=== PATIENT | female | born 1965 | race African-American/Black ===

== ENCOUNTER 2023-07-29 19:20 | Inpatient (IN) | payer MEDICAID, OTHER ==
[~2023-07-29] VITALS: Ht 157.5 cm; Wt 36.3 kg
[~2023-07-29 19:20] MED LIST: AMLO10TA59 PO; PANT40TA2 PO
[2023-07-29] MEDS: IV NORMAL SALINE 1000 ML BAG IV ONE (20:30)
[2023-07-29] MEDS: ONDANSETRON 4 MG/2 ML VIAL IV ONE ×2 (20:30→20:45)
[2023-07-29 20:38] LABS: BASOPHILS % (AUTO) 0.5 % (0.0-2.0); EOSINOPHILS % (AUTO) 0.6 % (0.0-7.0); HEMATOCRIT 36.8 % (31.2-41.9); HEMOGLOBIN 11.5 g/dL (10.9-14.3); LYMPHOCYTES # (AUTO) 0.9 K/uL (0.8-4.8); LYMPHOCYTES % (AUTO) 11.4 % (20.5-51.5); MEAN CORPUSCULAR HGB CONC 31 g/dL (32.3-35.6); MEAN CORPUSCULAR VOLUME 92.5 fL (75.5-95.3); MONOCYTES # (AUTO) 0.9 K/uL (0.1-1.30); NEUTROPHILS # (AUTO) 6.2 K/uL (1.8-8.9); NEUTROPHILS % (AUTO) 76.5 % (38.5-71.5); PLATELET COUNT (AUTO) 330 K/uL (179-408); RED BLOOD CELL COUNT(AUTO) 3.98 MIL/uL (3.63-4.92); RED CELL DISTRIBUTION WIDTH 14.4 % (12.3-17.7); WHITE BLOOD COUNT (AUTO) 8.1 K/uL (3.8-11.8)
[2023-07-29 20:39] LABS: DIFFERENTIAL COMMENT 1
[2023-07-29 20:47] LABS: CALCIUM 8.3 mg/dL (8.5-10.1); CREATININE 0.9 mg/dL (0.6-1.3); POTASSIUM 3.3 mmol/L (3.5-5.1)
[2023-07-29 20:57] LABS: ALBUMIN 3.2 g/dL (3.4-5.0); BILIRUBIN,DIRECT 0.5 mg/dL (0.0-0.2); BILIRUBIN,TOTAL 0.9 mg/dL (0.2-1.0); TOTAL PROTEIN, SERUM 6.6 g/dL (6.4-8.2)
[2023-07-29] MEDS ORDERED: ONDANSETRON 4 MG/2 ML VIAL ONE (21:01)
[2023-07-29] MEDS ORDERED: HYDROMORPHONE 1 MG/1 ML DISP.SYRIN ONE (22:04)
[2023-07-29] MEDS: HYDROMORPHONE 1 MG/1 ML DISP.SYRIN IV ONE (22:08)
[2023-07-29] MEDS ORDERED: SWABABLE VALVE TRANSFER SET EA MC ONE (22:33)
[2023-07-29] MEDS ORDERED: IOHEXOL 300MG/ML 100 ML INFUS..BTL ONE (22:33)
[2023-07-29] MEDS ORDERED: IV NORMAL SALINE 250 ML IV ONE (22:33)
[2023-07-30 00:32] LABS: *BILIRUBIN,URIN NEGATIVE (NEGATIVE); *CLARITY,URINE CLEAR (CLEAR); *COLOR,URINE YELLOW (YELLOW); *KETONES,URINE NEGATIVE (NEGATIVE); *PROTEIN,URINE NEGATIVE (NEGATIVE); *UROBILINOGEN,URINE 0.2 E.U./dl (NORMAL); LEUKOCYTE ESTERASE ,URINE NEGATIVE (NEGATIVE); NITRITE, URINE NEGATIVE (NEGATIVE); PH,URINE 5.5 (5.0-8.0); UGLUCOSE NEGATIVE (NEGATIVE)
[2023-07-30 00:34] LABS: *BLOOD, URINE NEGATIVE (NEGATIVE)
[2023-07-30] MEDS ORDERED: levoFLOXacin 500 MG/D5W 100 ML ONE (00:34)
[2023-07-30] MEDS ORDERED: METRONIDAZOLE 500 MG/NS 100ML 100 ML IV ONE (00:35)
[2023-07-30] MEDS ORDERED: ONDANSETRON 4 MG/2 ML VIAL ONE ×2 (00:36→05:24)
[2023-07-30] MEDS: METRONIDAZOLE 500 MG/NS 100 ML PIGGYBACK IV ONE (00:52)
[2023-07-30] MEDS: MAGNESIUM SULFATE/D5W 100 ML IV SCH (01:00)
[2023-07-30] MEDS: levoFLOXacin 500 MG/D5W 100ML PIGGYBACK IV ONE (01:30)
[2023-07-30] MEDS ORDERED: MAGNESIUM SULFATE/D5W 100 ML ONE ×2 (01:55→03:05)
[2023-07-30] MEDS ORDERED: HYDROMORPHONE 1 MG/1 ML DISP.SYRIN ONE ×2 (01:55→05:25)
[2023-07-30] MEDS: ONDANSETRON 4 MG/2 ML VIAL IV ONE ×2 (02:01→05:33)
[2023-07-30] MEDS: HYDROMORPHONE 1 MG/1 ML DISP.SYRIN IV ONE ×2 (02:01→05:33)
[2023-07-30] MEDS ORDERED: MAGNESIUM SULFATE/D5W 200 ML ONE (04:02)
[2023-07-30] MEDS ORDERED: POTASSIUM CHLORIDE 20 MEQ TAB.PRT.SR ONE (05:26)
[2023-07-30] MEDS: POTASSIUM CHLORIDE 20 MEQ TAB.PRT.SR PO ONE (05:30)
[2023-07-30] MEDS ORDERED: MAGNESIUM HYDROXIDE 30 ML LIQUID UDC PO PRN (05:45)
[2023-07-30 06:25] VITALS: BP 122/87; TEMP 97.7; O2SAT 99
[2023-07-30 08:13] LABS: MONOCYTES % (AUTO) 3.7 % (0.0-11.0); NEUTROPHILS # (AUTO) 2.5 K/uL (1.8-8.9)
[2023-07-30 08:22] LABS: BASOPHILS % (AUTO) 0.9 % (0.0-2.0); EOSINOPHILS % (AUTO) 0.1 % (0.0-7.0); HEMATOCRIT 36.5 % (31.2-41.9); LYMPHOCYTES # (AUTO) 1.4 K/uL (0.8-4.8); LYMPHOCYTES % (AUTO) 34.2 % (20.5-51.5); MEAN CORPUSCULAR HEMOGLOBIN 29.8 uug (24.7-32.8); MEAN CORPUSCULAR HGB CONC 33 g/dL (32.3-35.6); MEAN CORPUSCULAR VOLUME 90.9 fL (75.5-95.3); MONOCYTES # (AUTO) 0.2 K/uL (0.1-1.30); NEUTROPHILS % (AUTO) 61.1 % (38.5-71.5); PLATELET COUNT (AUTO) 328 K/uL (179-408); RED BLOOD CELL COUNT(AUTO) 4.02 MIL/uL (3.63-4.92); WHITE BLOOD COUNT (AUTO) 4.1 K/uL (3.8-11.8)
[2023-07-30 08:42] LABS: CALCIUM 8.1 mg/dL (8.5-10.1); CREATININE 0.6 mg/dL (0.6-1.3); MAGNESIUM 2.4 mg/dL (1.8-2.4); PHOSPHOROUS 3.2 mg/dL (2.5-4.9)
[2023-07-30 08:45] LABS: DIFFERENTIAL COMMENT 1
[2023-07-30 08:49] LABS: POTASSIUM 2.7 mmol/L (3.5-5.1)
[2023-07-30] MEDS: PANTOPRAZOLE SODIUM 40 MG VIAL IV SCH (08:50)
[2023-07-30] MEDS: ONDANSETRON 4 MG/2 ML VIAL IV PRN (08:51)
[2023-07-30] MEDS: ENOXAPARIN SODIUM 40 MG/0.4 ML DISP.SYRIN SQ SCH (08:53)
[2023-07-30] MEDS: IV NS 1000 ML 1,000 ML IV PRN (08:53)
[2023-07-30] MEDS: MIRALAX 17 GM POWD.PACK PO SCH (10:00)
[2023-07-30] MEDS: POTASSIUM CHLORIDE 20 MEQ POWDER PACKET PO ONE ×3 (10:11→16:19)
[2023-07-30] MEDS: HYDROMORPHONE 1 MG/1 ML DISP.SYRIN IV PRN ×2 (10:12→21:30)
[2023-07-30] MEDS: METRONIDAZOLE 500 MG/NS 100ML 500 MG in PREMIXED 1 EACH IV SCH (10:15)
[2023-07-30] MEDS: CIPROFLOXACIN IV 200 MG in PREMIXED 1 EACH IV SCH (10:15)
[2023-07-30 11:07] VITALS: BP 136/91; TEMP 98.4; O2SAT 100
[2023-07-30 14:02] LABS: BAND % (MANUAL) 1 % (0-10); LYMPHOCYTES % (MANUAL) 16 % (20-40); MONOCYTES % (MANUAL) 2 % (2-10); NEUTROPHILS % (MANUAL) 81 % (42-75); PLATELET ESTIMATE ADEQUATE
[2023-07-30 14:03] LABS: ANISOCYTOSIS 1+; HYPOCHROMASIA 1+
[2023-07-30 15:10] VITALS: BP 136/94; TEMP 98.2; O2SAT 96
[2023-07-30] MEDS: SENNOSIDES 1 TABLET PO SCH (21:29)
[2023-07-30 23:05] VITALS: BP 134/103; TEMP 98.4; O2SAT 98
[2023-07-31] VITALS (7 sets, daily range): BP systolic 132–143; BP diastolic 72–99; TEMP 92.2–98.6; O2SAT 95–99
[2023-07-31 07:42] LABS: ALBUMIN 2.8 g/dL (3.4-5.0); BILIRUBIN,DIRECT 0.1 mg/dL (0.0-0.2); BILIRUBIN,TOTAL 0.5 mg/dL (0.2-1.0); TOTAL PROTEIN, SERUM 5.8 g/dL (6.4-8.2)
[2023-07-31] MEDS: ACIDOPHILUS/BULGARICUS CHEW TAB PO SCH (11:11)
[2023-07-31] MEDS: GLUCERNA SHAKE 237 ML CAN PO SCH (12:16)
[2023-07-31] MEDS: CIPROFLOXACIN IV 200 MG in PREMIXED 1 EACH IV SCH (12:16)
[2023-07-31] MEDS ORDERED: METH-806 PO (14:17)
[2023-07-31] MEDS ORDERED: LOSA25TA27 PO (14:17)
[2023-07-31] MEDS ORDERED: ONDA4TAB11 PO (14:17)
[2023-07-31] MEDS ORDERED: MECL-159 PO (14:17)
[2023-07-31] MEDS ORDERED: ACET1TAB25 PO (14:18)
[2023-07-31] MEDS: PROTEIN SUPPLEMENT (PROSTAT) 30 ML LIQUID PO SCH (17:04)
[2023-07-31] MEDS ORDERED: METHOCARBAMOL 500 MG TABLET PO PRN (20:00)
[2023-07-31] MEDS ORDERED: MECLIZINE HCL 25 MG TABLET PO PRN (20:00)
[2023-07-31] MEDS: AMLODIPINE 10 MG TABLET PO SCH (22:11)
[2023-08-01 04:54] VITALS: BP 159/74; TEMP 98.5; O2SAT 92
[2023-08-01 07:32] LABS: CALCIUM 7.9 mg/dL (8.5-10.1); CREATININE 0.6 mg/dL (0.6-1.3); POTASSIUM 3.2 mmol/L (3.5-5.1)
[2023-08-01 08:10] VITALS: BP 147/62; TEMP 97.7; O2SAT 98
[2023-08-01] MEDS: LOSARTAN POTASSIUM 25 MG TABLET PO SCH (11:09)
[2023-08-01 11:38] VITALS: BP 123/93; TEMP 98.7; O2SAT 100
[2023-08-01] MEDS: POTASSIUM CHLORIDE 20 MEQ POWDER PACKET PO ONE ×2 (11:55→13:30)
[2023-08-01 15:42] VITALS: BP 122/89; TEMP 98.2; O2SAT 99
[2023-08-01 22:04] VITALS: BP 121/83; TEMP 98.2
[2023-08-02 06:47] LABS: BASOPHILS % (AUTO) 0.4 % (0.0-2.0); EOSINOPHILS # (AUTO) 0.2 K/uL (0.0-0.7); HEMATOCRIT 35.5 % (31.2-41.9); HEMOGLOBIN 11.5 g/dL (10.9-14.3); LYMPHOCYTES # (AUTO) 1.5 K/uL (0.8-4.8); LYMPHOCYTES % (AUTO) 28.5 % (20.5-51.5); MEAN CORPUSCULAR HGB CONC 32 g/dL (32.3-35.6); MEAN CORPUSCULAR VOLUME 92.6 fL (75.5-95.3); MONOCYTES # (AUTO) 0.6 K/uL (0.1-1.30); MONOCYTES % (AUTO) 10.8 % (0.0-11.0); NEUTROPHILS # (AUTO) 3.1 K/uL (1.8-8.9); NEUTROPHILS % (AUTO) 57.3 % (38.5-71.5); RED BLOOD CELL COUNT(AUTO) 3.84 MIL/uL (3.63-4.92); RED CELL DISTRIBUTION WIDTH 14.4 % (12.3-17.7); WHITE BLOOD COUNT (AUTO) 5.3 K/uL (3.8-11.8)
[2023-08-02 06:52] LABS: DIFFERENTIAL COMMENT 1
[2023-08-02 06:54] LABS: ALBUMIN 2.8 g/dL (3.4-5.0); BILIRUBIN,TOTAL 0.3 mg/dL (0.2-1.0); CALCIUM 8.4 mg/dL (8.5-10.1); CREATININE 0.6 mg/dL (0.6-1.3); POTASSIUM 3.7 mmol/L (3.5-5.1); TOTAL PROTEIN, SERUM 5.9 g/dL (6.4-8.2)
[2023-08-02] MEDS: PANTOPRAZOLE SODIUM 40 MG TABLET.DR PO SCH (06:57)
[2023-08-02 07:54] VITALS: BP 122/86; TEMP 97.8
[2023-08-02 08:42] VITALS: BP 122/86
[2023-08-02] MEDS ORDERED: ACID1TAB4 PO (08:44)
[2023-08-02] MEDS ORDERED: CIPR500T5 PO (08:44)
[2023-08-02] MEDS ORDERED: ACET1TAB25 PO (08:44)
[2023-08-02] MEDS ORDERED: METR500T PO (08:44)
[2023-08-02 11:17] LABS: PLATELET COUNT (AUTO) 293 K/uL (179-408)
[2023-08-02] MEDS ORDERED: METRONIDAZOLE 500 MG TABLET PO SCH (14:00)
== END 2023-08-02 10:25 | disposition home or self-care (01) | DRG 248 ==
LOC: ER 19:25 → MEDSURG3 07-30 01:44
PROVIDERS: ADMIT Nurse Practitioner Acute Care; ATTEND Nurse Practitioner Acute Care
DX: A04.9 Bacterial intestinal infection, unspecified (principal); R64 Cachexia; E43 Unspecified severe protein-calorie malnutrition; K83.8 Other specified diseases of biliary tract; E86.0 Dehydration; E83.42 Hypomagnesemia; Z68.1 Body mass index [BMI] 19.9 or less, adult; E87.6 Hypokalemia; G89.29 Other chronic pain; K59.00 Constipation, unspecified; Z90.49 Acquired absence of other specified parts of digestive tract; K21.9 Gastro-esophageal reflux disease without esophagitis; I10 Essential (primary) hypertension; Z90.710 Acquired absence of both cervix and uterus; Z90.81 Acquired absence of spleen; Z98.84 Bariatric surgery status; Z88.1 Allergy status to other antibiotic agents; Z88.0 Allergy status to penicillin
CPT/HCPCS: 36415; 70030-TC; 71045; 76705; 83690; 83735; 84100; 85025; 85730; A4606; A4663; C9113; G0378; J1170; J1650; J1956; J2405; J3475; J3490; J7040; Q9967

== ENCOUNTER 2023-09-13 11:38 | Emergency (ER) | payer MEDICAID ==
[~2023-09-13] VITALS: Ht 157.5 cm; Wt 36.3 kg
[~2023-09-13 11:38] MED LIST changes: +ACET1TAB25 PO; +ACID1TAB4 PO; +CIPR500T5 PO; +LOSA25TA27 PO; +MECL-159 PO; +METH-806 PO; +METR500T PO; +ONDA4TAB11 PO
[2023-09-13 12:13] LABS: BASOPHILS # (AUTO) 0.1 K/UL (0.0-0.2); BASOPHILS % (AUTO) 1.6 % (0.0-2.0); EOSINOPHILS # (AUTO) 0.2 K/uL (0.0-0.7); HEMATOCRIT 41.2 % (31.2-41.9); HEMOGLOBIN 12.9 g/dL (10.9-14.3); LYMPHOCYTES # (AUTO) 1.5 K/uL (0.8-4.8); LYMPHOCYTES % (AUTO) 22.6 % (20.5-51.5); MEAN CORPUSCULAR HEMOGLOBIN 28.9 uug (24.7-32.8); MEAN CORPUSCULAR HGB CONC 31 g/dL (32.3-35.6); MEAN CORPUSCULAR VOLUME 92.1 fL (75.5-95.3); MONOCYTES # (AUTO) 0.4 K/uL (0.1-1.30); MONOCYTES % (AUTO) 5.5 % (0.0-11.0); NEUTROPHILS # (AUTO) 4.6 K/uL (1.8-8.9); NEUTROPHILS % (AUTO) 67.3 % (38.5-71.5); PLATELET COUNT (AUTO) 304 K/uL (179-408); RED BLOOD CELL COUNT(AUTO) 4.47 MIL/uL (3.63-4.92); RED CELL DISTRIBUTION WIDTH 14.3 % (12.3-17.7); WHITE BLOOD COUNT (AUTO) 6.8 K/uL (3.8-11.8)
[2023-09-13 12:14] LABS: DIFFERENTIAL COMMENT 1
[2023-09-13 12:32] LABS: ALBUMIN 3.5 g/dL (3.4-5.0); BILIRUBIN,TOTAL 0.6 mg/dL (0.2-1.0); CALCIUM 8.6 mg/dL (8.5-10.1); CREATININE 0.8 mg/dL (0.6-1.3); POTASSIUM 3.1 mmol/L (3.5-5.1); TOTAL PROTEIN, SERUM 6.8 g/dL (6.4-8.2)
[2023-09-13] MEDS ORDERED: ONDANSETRON 4 MG/2 ML VIAL ONE (12:38)
[2023-09-13] MEDS ORDERED: KETOROLAC TROMETHAMINE 30 MG INJ ONE (12:38)
[2023-09-13] MEDS: ONDANSETRON 4 MG/2 ML VIAL IV ONE (12:47)
[2023-09-13] MEDS: IV NS 1000 ML 1,000 ML IV ONE (12:47)
[2023-09-13] MEDS: KETOROLAC TROMETHAMINE 30 MG INJ IVP ONE (12:48)
[2023-09-13] MEDS ORDERED: POTASSIUM CHLORIDE 10 MEQ TAB.PRT.SR ONE (13:34)
[2023-09-13] MEDS: POTASSIUM CHLORIDE 20 MEQ TAB.PRT.SR PO ONE (13:38)
[2023-09-13 14:46] LABS: *BILIRUBIN,URIN NEGATIVE (NEGATIVE); *BLOOD, URINE 1+ (NEGATIVE); *CLARITY,URINE CLEAR (CLEAR); *COLOR,URINE YELLOW (YELLOW); *KETONES,URINE NEGATIVE (NEGATIVE); *PROTEIN,URINE TRACE (NEGATIVE); *UROBILINOGEN,URINE 0.2 E.U./dl (NORMAL); LEUKOCYTE ESTERASE ,URINE NEGATIVE (NEGATIVE); NITRITE, URINE NEGATIVE (NEGATIVE); UGLUCOSE NEGATIVE (NEGATIVE)
[2023-09-13] MEDS ORDERED: MORPHINE SULFATE 2 MG/1 ML DISP.SYRIN ONE (15:00)
[2023-09-13] MEDS: MORPHINE SULFATE 2 MG/1 ML DISP.SYRIN IV ONE (15:01)
[2023-09-13 15:16] VITALS: BP 124/85; TEMP 97.5; O2SAT 98
== END 2023-09-13 15:17 | disposition home or self-care (01) ==
LOC: ER 11:38
DX: G89.29 Other chronic pain (principal); R10.84 Generalized abdominal pain; I10 Essential (primary) hypertension; Z79.52 Long term (current) use of systemic steroids; Z90.49 Acquired absence of other specified parts of digestive tract; Z79.899 Other long term (current) drug therapy; Z88.0 Allergy status to penicillin; Z88.2 Allergy status to sulfonamides
CPT/HCPCS: 99285; 74176; 96374; 96375; 96361; 80053; 81001; 83690; 85025; 36415; 83605; J1885; J2405; J2270; J7040; A4606; A4663